=== PATIENT | male | born 1990 | race Caucasian/White ===

== ENCOUNTER 2019-08-11 04:18 | Emergency (ER) | payer SELFPAY ==
[~2019-08-11] VITALS: Ht 175.3 cm; Wt 81.6 kg
--- NOTE | 2019-08-11 04:18 | NUR ---
28 Y/O MALE PRESENTS TO ED [facility] C/O ETOH, PRE-BOOK. BIB [facility]. VSS. ER AWARE. [facility] AT CHAIR SIDE. CONTINUE TO MONITOR.
[2019-08-11 04:21] VITALS: BP 155/91
[2019-08-11 04:37] VITALS: BP 155/91
--- NOTE | 2019-08-11 04:37 | NUR ---
PATIENT EXAMINED BY DR. CORONA. PATIENT MEDICALLY CLEARED AND RELEASED IN CUSTODY IN STABLE CONDITION. ORIGINAL PRE-BOOK FORM GIVEN TO [facility].
== END 2019-08-11 04:37 | disposition home or self-care (01) ==
LOC: MED 04:18
DX: R03.0 Elevated blood-pressure reading, without diagnosis of hypertension (principal); Z02.89 Encounter for other administrative examinations; V89.2XXA Person injured in unspecified motor-vehicle accident, traffic, initial encounter; Y93.89 Activity, other specified; Y92.89 Other specified places as the place of occurrence of the external cause; Y99.8 Other external cause status
CPT/HCPCS: 99283